=== PATIENT | female | born 1995 | race Caucasian/White ===

== ENCOUNTER 2022-02-11 12:09 | Observation (INO) ==
[2022-02-11] MEDS ORDERED: SODIUM CHLORIDE 0.9% 1000ML 1,000 ML IV ONE (12:23)
--- NOTE | 2022-02-11 12:29 | Emergency Department Note ---
Impression & Plan Palpitations, Elevated troponin ED Provider Note NAME: TIMO HERNANDEZ AGE: 26 SEX: F : 1995 ARRIVES VIA: Walk-In INFORMANT: Patient ED PROVIDER(S): Fabricio Valiente DO CHIEF COMPLAINT: Palpitations HPI: Patient is a 26-year-old female who presents to the ER for increased heart rate and palpitations which started on 1020. Symptoms started symptoms resolved around 11. She feels like her heart is racing and PT regularly with it. Denies any belly pain, nausea, vomiting, or diarrhea. No dysuria, urgency, or frequency. No other exacerbating or remitting factors. Patient denies swelling of calves, recent trips, history of immobilization or recent surgery, prior history of DVT, hemoptysis, and history of malignancy. Patient denies diabetes, hypertension, hyperlipidemia, CAD, history of sudden at a young age. Patient does not smoke. She is on control. ROS: See above HPI for pertinent positives & negatives. A total of 10 systems reviewed and were otherwise negative. PAST MEDICAL HISTORY:See Below PAST SURGICAL HISTORY:See Below FAMILY HISTORY:See Below SOCIAL HISTORY:See Below HOME MEDICATIONS:See Below ALLERGIES:See Below VITALS:See Below PHYSICAL EXAMINATION: GENERAL: Sitting up in bed, alert, well appearing, well nourished, no distress, non-toxic EYE EXAM: normal conjunctiva. OROPHARYNX: no exudate, no erythema, lips, buccal mucosa, and tongue normal and mucous membranes are moist NECK: supple, no nuchal rigidity, no adenopathy, non-tender LUNGS: Clear to auscultation. Normal chest wall mechanics HEART: no murmurs, S1 normal and S2 normal ABDOMEN: abdomen soft, non-tender, normo-active bowel sounds, no masses, no rebound or guarding. UPPER EXTREMITIES: upper extremities are grossly normal. LOWER EXTREMITIES: No pitting edema. Calves are equal bilateral NEURO EXAM: Normal sensorium, cranial nerves II-XII grossly intact, normal speech, no gross weakness of arms, no gross weakness of legs. MEDICAL DECISION MAKING: Patient is a 26-year-old female who presents the ER for palpitations. IV was established blood was obtained. Labs show no significant leukocytosis or anemia. D-dimer was negative. BMP along LFTs bilirubin was unremarkable. Lipase and TSH were unremarkable. Covid was negative. EKG was nondiagnostic. Initial troponin was 9. Repeat was 32. This was greater than 10 point elevation and was greater than 20% both of which per her new scoring criteria recommend admission. Patient has no cardiac risk factors and no real PE risk factors. Patient was updated at bedside. Her chest x-ray was unremarkable. She was discussed with hospitalist admitted for further work-up. It was admitted completely asymptomatic. I do favor that this is likely rate related and question if she was going into SVT. Triage Nursing notes reviewed. Limited review of prior medical records performed Vital Signs: reviewed and remarkable for tachycardia Differential diagnosis: Differential diagnoses includes but is not limited to acute coronary syndrome, myocardial infarction, pericarditis, pulmonary embolus, aortic dissection, pneumonia, pneumothorax, musculoskeletal, shingles, esophageal. ER treatment provided: See below Diagnostics interpreted by me: ECG: Sinus rhythm rate 98 Normal axis No PVCs T wave inversion in the septal leads QTC 393 Cardiac Monitoring: An order was placed for continuous cardiac monitoring. The monitor shows a rate of 101 with sinus rhythm. Laboratory studies: As stated above and show below. Imaging studies: Verbal AP upright 1 view of the chest is unremarkable Consultation(s): Discussed with Alvaro Rubin for further evaluation Procedures: none Critical Care: None Past Med/Surg History Social History Smoking Status: Never smoker Preferred Language: Nepali Feels Safe at Home: Yes Allergies Allergies Allergy/AdvReac Type Severity Reaction Status Date / Time No Known Allergies Allergy Unverified 02/11/22 16:13 Home Meds Home Medications Medication Instructions Recorded Confirmed acetaminophen 500 mg tablet 1,000 mg PO Q6H PRN 02/11/22 02/11/22 (Tylenol Extra Strength) cholecalciferol (vitamin D3) 125 125 mcg PO DAILY 02/11/22 02/11/22 mcg (5,000 unit) tablet (Vitamin D3) fremanezumab-vfrm 225 mg/1.5 mL 0 mg SUBCUT MO 02/11/22 02/11/22 subcutaneous syringe (Ajovy Syringe) ibuprofen 200 mg tablet 600 mg PO TID PRN 02/11/22 02/11/22 norethindrone 1 mg-ethinyl 1 tab PO DAILY 02/11/22 02/11/22 estradiol 20 mcg (24)-iron 75 mg (4) tablet ([place] 24 Fe) rizatriptan 10 mg tablet 10 mg PO DIRECTED PRN 02/11/22 02/11/22 spironolactone 50 mg tablet 50 mg PO BID 02/11/22 02/11/22 sumatriptan succinate 100 mg tablet 100 mg PO DAILY PRN 02/11/22 02/11/22 Results & Data (ED) Vital Signs Vital Signs - 24 hr 02/11/22 12:11 02/11/22 12:23 02/11/22 12:39 Temperature 36.3 C L Temperature Source Temporal Artery Scan Pulse Rate 107 H 107 H Pulse Rate [Finger] 98 H Pulse Rhythm Regular Regular Pulse Rhythm [Finger] Regular Pulse Strength Normal Pulse Strength [Finger] Normal Respiratory Rate 20 20 18 Respiratory Effort / Characteristics Non-Labored Spontaneous Non-Labored Respiratory Depth Normal Normal Respiratory Pattern Regular Regular Blood Pressure 115/82 Blood Pressure [Left Arm] 114/90 Blood Pressure Mean 93 Blood Pressure Mean [Left Arm] 98 Blood Pressure Position Sitting Blood Pressure Position [Left Arm] Sitting Pulse Oximetry 100 100 100 Oxygen Delivery Method Room Air Room Air Room Air Sepsis Recent Fever Within 48 Hours No Sepsis New/Unexplained Change in Mental Status No Sepsis Action Taken by Nursing No Action Required 02/11/22 13:46 02/11/22 14:57 02/11/22 16:03 Temperature Temperature Source Pulse Rate Pulse Rate [Finger] 85 93 H Pulse Rhythm Pulse Rhythm [Finger] Regular Regular Regular Pulse Strength Pulse Strength [Finger] Normal Normal Respiratory Rate 19 18 16 Respiratory Effort / Characteristics Non-Labored Non-Labored Non-Labored Respiratory Depth Normal Normal Normal Respiratory Pattern Regular Regular Blood Pressure Blood Pressure [Left Arm] 102/70 104/65 Blood Pressure Mean Blood Pressure Mean [Left Arm] 80 78 Blood Pressure Position Blood Pressure Position [Left Arm] Sitting Sitting Pulse Oximetry 100 100 Oxygen Delivery Method Room Air Room Air Room Air Sepsis Recent Fever Within 48 Hours Sepsis New/Unexplained Change in Mental Status Sepsis Action Taken by Nursing 02/11/22 17:04 Temperature Temperature Source Pulse Rate Pulse Rate [Finger] 98 H Pulse Rhythm Pulse Rhythm [Finger] Regular Pulse Strength Pulse Strength [Finger] Normal Respiratory Rate 20 Respiratory Effort / Characteristics Non-Labored Spontaneous Respiratory Depth Normal Respiratory Pattern Regular Blood Pressure Blood Pressure [Left Arm] 116/81 Blood Pressure Mean Blood Pressure Mean [Left Arm] 92 Blood Pressure Position Blood Pressure Position [Left Arm] Sitting Pulse Oximetry 99 Oxygen Delivery Method Room Air Sepsis Recent Fever Within 48 Hours Sepsis New/Unexplained Change in Mental Status Sepsis Action Taken by Nursing Laboratory Data Result diagrams: 02/11/22 12:24 02/11/22 12:24 Lab Results 02/11/22 02/11/22 02/11/22 Range/Units 12:24 12:24 12:24 WBC 6.82 (4.8-10.8) K/uL RBC 4.51 (4.2-5.4) M/uL Hgb 13.9 (12.0-16.0) g/dL Hct 40.6 (37-47) % MCV 90.0 (80-100) fL MCH 30.8 (25-34) pg MCHC 34.2 (32-36) g/dL RDW Std Deviation 38.4 (36.4-46.3) fL RDW Coeff of Moe 11.8 (11.5-14.5) % Plt Count 400 (130-400) K/uL MPV 8.7 (7.4-10.4) fL Immature Gran % (Auto) 0.1 % Neut % (Auto) 66.7 % Lymph % (Auto) 26.5 % Mason % (Auto) 6.3 % Eos % (Auto) 0.1 % Baso % (Auto) 0.3 % Neut # (Auto) 4.54 (1.4-6.5) K/uL Lymph # (Auto) 1.81 (1.2-3.4) K/uL Mason # (Auto) 0.43 (0.11-0.59) K/uL Eos # (Auto) 0.01 (0-0.5) K/uL Baso # (Auto) 0.02 (0-0.2) K/uL Immature Gran # (Auto) 0.01 (0.00-0.02) K/uL D-Dimer 200 (0-500) ug/L FEU Sodium (136-145) mmol/L Potassium (3.5-5.1) mmol/L Chloride (98-107) mmol/L Carbon Dioxide (21-32) mmol/L Anion Gap (3-11) BUN (6-23) mg/dl Creatinine (0.6-1.2) mg/dl Est Cr Clr Drug Dosing ml/min Est GFR ( Amer) ml/min Est GFR (Non-Af Amer) ml/min BUN/Creatinine Ratio (10-20) Glucose (70-99(Fasting)) mg/dl Calcium (8.5-10.1) mg/dl Total Bilirubin (0.2-1.0) mg/dl AST (13-39) U/L ALT (7-52) U/L Alkaline Phosphatase (34-104) U/L Troponin I High Sens 9.2 (0-14) pg/ml Total Protein (6.0-8.3) gm/dl Albumin (3.4-5.0) gm/dl Globulin (2.5-4.0) gm/dl Albumin/Globulin Ratio (0.9-2) Lipase (11-82) U/L TSH (0.300-4.500) uIu/ml SARS-CoV-2, RNA, NAAT (NEGATIVE) 02/11/22 02/11/22 02/11/22 Range/Units 12:24 12:30 14:38 WBC (4.8-10.8) K/uL RBC (4.2-5.4) M/uL Hgb (12.0-16.0) g/dL Hct (37-47) % MCV (80-100) fL MCH (25-34) pg MCHC (32-36) g/dL RDW Std Deviation (36.4-46.3) fL RDW Coeff of Moe (11.5-14.5) % Plt Count (130-400) K/uL MPV (7.4-10.4) fL Immature Gran % (Auto) % Neut % (Auto) % Lymph % (Auto) % Mason % (Auto) % Eos % (Auto) % Baso % (Auto) % Neut # (Auto) (1.4-6.5) K/uL Lymph # (Auto) (1.2-3.4) K/uL Mason # (Auto) (0.11-0.59) K/uL Eos # (Auto) (0-0.5) K/uL Baso # (Auto) (0-0.2) K/uL Immature Gran # (Auto) (0.00-0.02) K/uL D-Dimer (0-500) ug/L FEU Sodium 138 (136-145) mmol/L Potassium 3.9 (3.5-5.1) mmol/L Chloride 103 (98-107) mmol/L Carbon Dioxide 24 (21-32) mmol/L Anion Gap 11 (3-11) BUN 10 (6-23) mg/dl Creatinine 0.95 (0.6-1.2) mg/dl Est Cr Clr Drug Dosing 65.0 ml/min Est GFR ( Amer) 96.5 ml/min Est GFR (Non-Af Amer) 83.2 ml/min BUN/Creatinine Ratio 10.5 (10-20) Glucose 92 (70-99(Fasting)) mg/dl Calcium 10.0 (8.5-10.1) mg/dl Total Bilirubin 0.5 (0.2-1.0) mg/dl AST 13 (13-39) U/L ALT 8 (7-52) U/L Alkaline Phosphatase 34 (34-104) U/L Troponin I High Sens 31.9 H D (0-14) pg/ml Total Protein 8.2 (6.0-8.3) gm/dl Albumin 5.1 H (3.4-5.0) gm/dl Globulin 3.1 (2.5-4.0) gm/dl Albumin/Globulin Ratio 1.6 (0.9-2) Lipase 22 (11-82) U/L TSH 1.990 (0.300-4.500) uIu/ml SARS-CoV-2, RNA, NAAT (NEGATIVE) 02/11/22 Range/Units 15:58 WBC (4.8-10.8) K/uL RBC (4.2-5.4) M/uL Hgb (12.0-16.0) g/dL Hct (37-47) % MCV (80-100) fL MCH (25-34) pg MCHC (32-36) g/dL RDW Std Deviation (36.4-46.3) fL RDW Coeff of Moe (11.5-14.5) % Plt Count (130-400) K/uL MPV (7.4-10.4) fL Immature Gran % (Auto) % Neut % (Auto) % Lymph % (Auto) % Mason % (Auto) % Eos % (Auto) % Baso % (Auto) % Neut # (Auto) (1.4-6.5) K/uL Lymph # (Auto) (1.2-3.4) K/uL Mason # (Auto) (0.11-0.59) K/uL Eos # (Auto) (0-0.5) K/uL Baso # (Auto) (0-0.2) K/uL Immature Gran # (Auto) (0.00-0.02) K/uL D-Dimer (0-500) ug/L FEU Sodium (136-145) mmol/L Potassium (3.5-5.1) mmol/L Chloride (98-107) mmol/L Carbon Dioxide (21-32) mmol/L Anion Gap (3-11) BUN (6-23) mg/dl Creatinine (0.6-1.2) mg/dl Est Cr Clr Drug Dosing ml/min Est GFR ( Amer) ml/min Est GFR (Non-Af Amer) ml/min BUN/Creatinine Ratio (10-20) Glucose (70-99(Fasting)) mg/dl Calcium (8.5-10.1) mg/dl Total Bilirubin (0.2-1.0) mg/dl AST (13-39) U/L ALT (7-52) U/L Alkaline Phosphatase (34-104) U/L Troponin I High Sens (0-14) pg/ml Total Protein (6.0-8.3) gm/dl Albumin (3.4-5.0) gm/dl Globulin (2.5-4.0) gm/dl Albumin/Globulin Ratio (0.9-2) Lipase (11-82) U/L TSH (0.300-4.500) uIu/ml SARS-CoV-2, RNA, NAAT NEGATIVE (NEGATIVE) Administered Medications Discontinued Medications Sodium Chloride (Nss 1000ml) 1,000 mls @ 999 mls/hr IV .Q1H1M ONE Stop: 02/11/22 13:23 Last Infusion: 02/11/22 13:45 Dose: 0 mls/hr Documented by: [id number] Admin: 02/11/22 12:28 Dose: 999 mls/hr Documented by: [id number] Imaging Data Radiologist's Impression: Chest X-Ray 02/11/22 12:23 SINGLE VIEW CHEST CLINICAL HISTORY: Atypical chest pain. Dyspnea FINDINGS: An AP, portable, upright chest radiograph is obtained. No prior studies are available for comparison at the time of dictation. The cardiomediastinal silhouette is unremarkable. The lungs and pleural spaces are clear. No pneumothorax is seen. The bony thorax is grossly intact. IMPRESSION: No active disease in the chest. ACT 112: Negative or not required by law. Electronically signed by: Jayesh Frias M.D. 02/11/2022 12:56 PM Discharge Plan Visit Data Chief Complaint: Arrhythmia/Palpitations Stated Complaint: palpitations and arm numbness ED Provider: Fabricio Valiente Discharge Problem: Palpitations, Elevated troponin Forms Stand Alone Forms: [facility] [employer] Prescriptions Prescriptions: No Action sumatriptan succinate 100 mg tablet 100 mg PO DAILY PRN (Reason: Migraine Headache) RF: 0 rizatriptan 10 mg tablet 10 mg PO DIRECTED PRN (Reason: Migraine Headache) RF: 0 acetaminophen [Tylenol Extra Strength] 500 mg Tablet 1,000 mg PO Q6H PRN (Reason: HEADACHE/PAIN) RF: 0 ibuprofen 200 mg Tablet 600 mg PO TID PRN (Reason: Pain) RF: 0 spironolactone 50 mg tablet 50 mg PO BID RF: 0 norethindrone-e.estradiol-iron [[place] 24 Fe] 1 mg-20 mcg (24)/75 mg (4) tablet 1 tab PO DAILY RF: 0 cholecalciferol (vitamin D3) [Vitamin D3] 125 mcg (5,000 unit) Tablet 125 mcg PO DAILY RF: 0 Ajovy Syringe 225 mg/1.5 mL Syringe 0 mg SUBCUT MO RF: 0 Referrals Referrals: Farzaneh Cook MD [Primary Care Provider] -
[2022-02-11 12:38] LABS: Basophils # (auto) 0.02 K/uL (0-0.2); Basophils % (auto) 0.3 %; Eosinophils # (auto) 0.01 K/uL (0-0.5); Eosinophils % (auto) 0.1 %; Hematocrit (blood only) 40.6 % (37-47); Hemoglobin 13.9 g/dL (12.0-16.0); Immature Granulocytes # (auto) 0.01 K/uL (0.00-0.02); Immature Granulocytes % (auto) 0.1 %; Lymphocytes # (auto) 1.81 K/uL (1.2-3.4); Lymphocytes % (auto) 26.5 %; Mean Corpuscular Hemoglobin 30.8 pg (25-34); Mean Corpuscular Hgb Conc 34.2 g/dL (32-36); Mean Platelet Volume 8.7 fL (7.4-10.4); Monocytes # (auto) 0.43 K/uL (0.11-0.59); Monocytes % (auto) 6.3 %; Neutrophils # (auto) 4.54 K/uL (1.4-6.5); Neutrophils % (auto) 66.7 %; Platelet Count 400 K/uL (130-400); RDW Coefficient of Variation 11.8 % (11.5-14.5); RDW Standard Deviation 38.4 fL (36.4-46.3); Red Blood Count 4.51 M/uL (4.2-5.4); White Blood Count 6.82 K/uL (4.8-10.8)
[2022-02-11 12:51] LABS: D Dimer 200 ug/L FEU (0-500)
--- NOTE | 2022-02-11 12:58 | XRay Report ---
SINGLE VIEW CHEST CLINICAL HISTORY: Atypical chest pain. Dyspnea FINDINGS: An AP, portable, upright chest radiograph is obtained. No prior studies are available for c omparison at the time of dictation. The cardiomediastinal silhouette is unremarkable. The lungs and pleural spaces are clear. No pneumothorax is seen. The bony thorax is grossly intact. IMPRESSION: No active disease in the chest. ACT 112: Negative or not required by law. Electronically signed by: Jayesh Frias M.D. 02/11/2022 12:56 PM
[2022-02-11 13:26] LABS: Albumin Globulin Ratio 1.6 (0.9-2); Albumin Level 5.1 gm/dl (3.4-5.0); BUN Creatinine Ratio 10.5 (10-20); Bilirubin,Total 0.5 mg/dl (0.2-1.0); Est GFR (African American) 96.5 ml/min; Est GFR (Non-African American) 83.2 ml/min; Globulin 3.1 gm/dl (2.5-4.0); Potassium 3.9 mmol/L (3.5-5.1); Total Protein 8.2 gm/dl (6.0-8.3)
--- NOTE | 2022-02-11 17:44 | History & Physical Report ---
Date of Service February 11, 2022 Assessment & Plan (1) Palpitations: Plan: -For an hour and a half today associated with 1-2 incidences of chest discomfort, which had resolved by time of presentation. TSH wnl, not anemic on labs, not associated with activity or stress. Ddx includes arrhythmias vs valvular disease. -We will admit to med telemetry for further evaluation given her elevated troponin. -Repeat troponin q6h x3 -Echo in AM. (2) Elevated troponin: Plan: -Initial troponin 9.2, repeat 31.9. Will trend q6h x3. -Echo in a.m., EKG with any new complaints of chest pain or palpitations. (3) Migraine: Plan: -Takes sumatriptan 100 mg daily as needed, last took this yesterday. Has had migraines the past few days, relying on sumatriptan daily. Without migraine at present. -Ajovy once per month, scheduled for tomorrow. (4) Acne: Plan: -Continue spironolactone 50 mg twice daily. Plan: -Admit to med telemetry. -SCDs for DVT prophylaxis. -Full code. History of Present Illness Chief Complaint: palpitations Primary Care Provider: Farzaneh Cook MD Ms. Lemos is a 26-year-old female with PMH migraines, on OCP who presents today from her work office with palpitations. Patient is a PhD student studying mask medications and was at her desk reading articles and working on her dissertation when she noticed her heart began to beat rapidly. She tried to ignore and go on with her activities, but after about 10 or 15 minutes it persisted, so she decided to call [facility] who referred her to an urgent care or emergency room for further evaluation. By the time she arrived here, she states her heart rate slowed down, but stayed for further evaluation. She noticed on a few occasions while her heart was racing and she was walking to her car, she had to bend over and rest because of a general sense of discomfort in her chest, otherwise she has been asymptomatic with this. She denies weakness, dizziness, lightheadedness, shortness of breath. She woke up nauseous this morning which she attributes to her migraine headache she had last night. She has not been recently ill, no recent fever/chills, no recent travel, she is on oral contraception but her D-dimer was drawn limits. No previous medical history of heart disease, she states she does have a family history of heart disease on her father side, multiple great aunts and uncles and her grandfather have had open heart surgery. She exercises somewhat regularly, engages in walking and Pilates. Denies any recent stress, had all her high stress exams a month ago. No personal conflict adding stress to her life. She denies drug use, does drink alcohol on occasion, but denies any binge drinking. She has taken sumatriptan for the last 3 days for migraines, did recently start Ajovy last month, and tomorrow she is scheduled for her second injection. No other new medications. She states this happened one time before in July, at that time she went to an urgent care for evaluation. They monitored her heart rate for several hours, it was elevated throughout her visit then, however EKG was unrevealing and she was sent home without any treatment or recommended follow-up. In ED, her vital signs within normal limits, pulse on the higher end of normal at 98. Labs largely unremarkable with exception of initial troponin 9.2, repeat 2 hours later 31.9. TSH within normal limits. Covid negative. D-dimer within normal limits at 200. CXR revealed no active disease in chest. Patient received a 1 L normal saline fluid bolus and hospitalist service was consulted for further evaluation and admission. Allergies Allergy/AdvReac Type Severity Reaction Status Date / Time No Known Allergies Allergy Unverified 02/11/22 16:13 Home Medications Medication Instructions Recorded Confirmed Type acetaminophen 500 mg tablet 1,000 mg PO Q6H PRN 02/11/22 02/11/22 History (Tylenol Extra Strength) cholecalciferol (vitamin D3) 125 125 mcg PO DAILY 02/11/22 02/11/22 History mcg (5,000 unit) tablet (Vitamin D3) fremanezumab-vfrm 225 mg/1.5 mL 0 mg SUBCUT MO 02/11/22 02/11/22 History subcutaneous syringe (Ajovy Syringe) ibuprofen 200 mg tablet 600 mg PO TID PRN 02/11/22 02/11/22 History norethindrone 1 mg-ethinyl 1 tab PO DAILY 02/11/22 02/11/22 History estradiol 20 mcg (24)-iron 75 mg (4) tablet ([place] 24 Fe) rizatriptan 10 mg tablet 10 mg PO DIRECTED PRN 02/11/22 02/11/22 History spironolactone 50 mg tablet 50 mg PO BID 02/11/22 02/11/22 History sumatriptan succinate 100 mg tablet 100 mg PO DAILY PRN 02/11/22 02/11/22 History Past Med/Surg History Social History Smoking Status: Never smoker Hx Alcohol Use: Yes Alcohol type: beer Hx Substance Use: No Preferred Language: Amharic Beliefs That Will Affect Care: None Current Living Situation: Alone Feels Safe at Home: Yes Safety Concerns: Feels Safe At This Time Assistive Devices: None Review of Systems Review of Systems: Constitutional: No fever/chills, weakness, fatigue, myalgias, anorexia, night sweats Eyes: No diplopia, no worsening or blurred vision ENT: normal hearing, no trouble swallowing Respiratory: No cough, sputum, dyspnea at rest or on exertion Cardiovascular: palpitations for 1.5 hours this AM with episodes fo chest pressure/discomfort Abdomen: No pain, nausea, vomiting, diarrhea or constipation : Denies dysuria, hematuria, increased urgency/frequency, urinary retention Musculoskeletal: No joint pain, calf pain, swelling Neurologic: No weakness, numbness/tingling, or balance problems Psychiatric: No anxiety or depression Skin: No rash or itch Physical Exam Physical Exam: General: awake, alert, well-developed, no apparent distress Head: Normocephalic, atraumatic ENT: PERRL, EOMI, no pharyngeal exudate, mucous membranes moist Chest: Clear to auscultation, on room air, no adventitious breath sounds Cardiac: Regular rate and rhythm, no murmur, no JVD, normal peripheral pulses, good capillary refill Abdominal: NABS x 4 quadrants, soft, nontender to palpation, no rebound, guarding or tenderness Extremities: Normal inspection, no peripheral edema or erythema, calfs nontender to palpation Psych: Normal mood and affect Neuro: AAO x 3, strength intact bilaterally and rated 5/5, no motor deficits, speech is clear, no peripheral sensory deficits Skin: no rash or erythema Results & Data Results & Data ([facility]) Vital Signs (Past 12 Hours) Vital Signs Temp Pulse Pulse Resp BP BP Pulse Ox 02/11/22 17:04 98 H 20 116/81 99 04/13/22 16:03 93 H 16 104/65 02/11/22 14:57 18 100 02/11/22 13:46 85 19 102/70 100 02/11/22 12:39 98 H 18 114/90 100 02/11/22 12:23 107 H 20 100 02/11/22 12:11 36.3 C L 107 H 20 115/82 100 Laboratory Results Abnormal lab results 02/11/22 02/11/22 Range/Units 12:24 14:38 Troponin I High Sens 31.9 H D (0-14) pg/ml Albumin 5.1 H (3.4-5.0) gm/dl Diagnostic Findings Chest X-Ray 02/11/22 12:23 SINGLE VIEW CHEST CLINICAL HISTORY: Atypical chest pain. Dyspnea FINDINGS: An AP, portable, upright chest radiograph is obtained. No prior studies are available for comparison at the time of dictation. The cardiomediastinal silhouette is unremarkable. The lungs and pleural spaces are clear. No pneumothorax is seen. The bony thorax is grossly intact. IMPRESSION: No active disease in the chest. ACT 112: Negative or not required by law. Electronically signed by: Jayesh Frias M.D. 02/11/2022 12:56 PM ECG Additional Comments: Normal sinus rhythm with sinus arrhythmia Possible Left atrial enlargement Borderline ECG No previous ECGs available. Upon my review, no ST segment or T wave inversions. Code Status & VTE Plan Code Status Full Code. VTE Prophylaxis Plan VTE Prophylaxis will be ordered: Yes Supervising Physician Co-Signing Physician Notes Patient seen and examined, chart reviewed, case discussed with Irasema Tolliver and I agree with the assessment and plan as above except as otherwise noted above. 26yo F suspect SVT not present at time of admission with mildly increased troponin on admit. Normal rate and BP at time of bedside assessment, RRR, lungs CTAB. D dimer negative, no hypoxia. No chest pain. Has hx of recurrent palpitations. TSH wnl. Lipase wnl. CXR wnl. EKG without signs of acute ischemia. COVID negative. Followup overnight for High sens trop eval. If otherwise well and trop downtrends would recommend outpt 30 day monitor given hx and recurrent sx. PG Care Time/CCT Total # of Minutes Spent Total Time Spent with Patient: Total time spent is greater than 50% in coordination of care (as documented) at patient's floor/unit and/or counseling patient: Coding Level of Care Code 98214 Initial Inpt Care Lvl 2 Diagnoses Palpitations R00.2 Elevated troponin R77.8 Migraine G43.909 Acne L70.9
[2022-02-11] MEDS ORDERED: ONDANSETRON INJ 2 MG/ML 2 ML VIAL IV PRN (18:40)
[2022-02-11] MEDS ORDERED: SUMAtriptan succinate 100 MG TAB PO PRN (18:40)
[2022-02-11] MEDS ORDERED: IBUPROFEN 600 MG TAB PO PRN (18:40)
[2022-02-11] MEDS ORDERED: POLYETHYLENE (MIRALAX) 17 GM PACK PO PRN (18:40)
[2022-02-11] MEDS ORDERED: RIZATRIPTAN BENZOATE 10 MG TAB PO PRN (18:40)
[2022-02-11] MEDS: ACETAMINOPHEN 500 MG TAB PO PRN (20:24)
[2022-02-11] MEDS: SPIRONOLACTONE 25 MG TAB PO SCH (20:30)
--- NOTE | 2022-02-12 06:32 | Electrocardiogram Report ---
Test Reason : Blood Pressure : / mmHG Vent. Rate : 098 BPM Atrial Rate : 098 BPM P-R Int : 150 ms QRS Dur : 064 ms QT Int : 308 ms P-R-T Axes : 075 057 046 degrees QTc Int : 393 ms Normal sinus rhythm with sinus arrhythmia Possible Left atrial enlargement Borderline ECG No previous ECGs available Confirmed by Bipin Perry ([id number]) on 02/12/2022 6:31:47 AM Referred By: REFERRED SELF Confirmed By:Bipin Perry
[2022-02-12] MEDS ORDERED: CHOLECALCIFEROL 5,000 UNITS 125 MCG TAB PO SCH (09:00)
[2022-02-12] MEDS: SPIRONOLACTONE 25 MG TAB PO SCH (09:34)
[2022-02-12] MEDS: ACETAMINOPHEN 500 MG TAB PO PRN (12:01)
--- NOTE | 2022-02-12 13:17 | Discharge Summary ---
Date of Service February 12, 2022 Admission HPI Per Admitting Provider Ms. Lemos is a 26-year-old female with PMH migraines, on OCP who presents today from her work office with palpitations. Patient is a PhD student studying mask medications and was at her desk reading articles and working on her dissertation when she noticed her heart began to beat rapidly. She tried to ignore and go on with her activities, but after about 10 or 15 minutes it persisted, so she decided to call [facility] who referred her to an urgent care or emergency room for further evaluation. By the time she arrived here, she states her heart rate slowed down, but stayed for further evaluation. She noticed on a few occasions while her heart was racing and she was walking to her car, she had to bend over and rest because of a general sense of discomfort in her chest, otherwise she has been asymptomatic with this. She denies weakness, dizziness, lightheadedness, shortness of breath. She woke up nauseous this morning which she attributes to her migraine headache she had last night. She has not been recently ill, no recent fever/chills, no recent travel, she is on oral contraception but her D-dimer was drawn limits. No previous medical history of heart disease, she states she does have a family history of heart disease on her father side, multiple great aunts and uncles and her grandfather have had open heart surgery. She exercises somewhat regularly, engages in walking and P ilates. Denies any recent stress, had all her high stress exams a month ago. No personal conflict adding stress to her life. She denies drug use, does drink alcohol on occasion, but denies any binge drinking. She has taken sumatriptan for the last 3 days for migraines, did recently start Ajovy last month, and tomorrow she is scheduled for her second injection. No other new medications. She states this happened one time before in July, at that time she went to an urgent care for evaluation. They monitored her heart rate for several hours, it was elevated throughout her visit then, however EKG was unrevealing and she was sent home without any treatment or recommended follow-up. In ED, her vital signs within normal limits, pulse on the higher end of normal at 98. Labs largely unremarkable with exception of initial troponin 9.2, repeat 2 hours later 31.9. TSH within normal limits. Covid negative. D-dimer within normal limits at 200. CXR revealed no active disease in chest. Patient received a 1 L normal saline fluid bolus and hospitalist service was consulted for further evaluation and admission. 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 NAD. Cooperative. HEENT: Atraumatic, normocephalic. Pulm: CTAB A&P. -wheezes, -rales, -rhonchi. Symmetrical chest rise. No increase in work of breathing. No respiratory distress. Cardiac: RRR, -mrg. Radial pulses intact and symmetrical. Abdominal: Nontender, nondistended, soft. BS present. Discharge Data Allergies Allergy/AdvReac Type Severity Reaction Status Date / Time No Known Allergies Allergy Unverified 02/11/22 16:13 Consultations 02/11/22 16:36 ED Decision to Admit Stat 02/12/22 12:17 Consult [facility] mileage clerk Routine Hospital Course (1) Palpitations: Chyna is a 26-year-old female with history of migraines who experienced an hour and a half of chest discomfort and severe palpitations prior to presentation to the ER. At time of presentation to the emergency department her symptoms and palpitations had resolved. She had a mild troponin leak on high- sensitivity troponin which down trended. Her EKG did not show signs of ACS, and she remained in sinus rhythm with occasional slight sinus tachycardia on telemetry overnight. Based on her descriptions and abrupt cessation of symptoms was suspected that she spans an episode of SVT/AVNRT. Patient reports she had experienced 1 prior episode of this last July which was worse and spon taneously disappeared. She is recommended to have a Holter monitor as an outpatient with close follow-up precautions. Pill in pocket approach was not pursued as diagnosis was not confirmed on telemetry on evaluation. She did not have any gross electrolyte abnormalities, TSH was normal. Her blood pressure was intermittently low and she reported a slightly low blood pressure at baseline despite normal heart rate, her spironolactone was dose decreased from 50 mg twice daily to 25 mg twice daily. To do as outpatient: 1. Follow-up with PCP. Recommend event monitor as outpatient. Being set up by nurse navigator at d/c. 2. Continued follow-up with neurology for migraines, patient did experience a migraine similar to prior during admission. She has recently not had benefit from Ajovy and is looking to switch from this. 3. Dose decrease spironolactone from 50 mg twice daily to 25 mg twice daily as above Palpitations -For an hour and a half day of admission associated with 1-2 incidences of chest discomfort, which had resolved by time of presentation. TSH wnl, not anemic on labs, not associated with activity or stress. Ddx includes arrhythmias vs valvular disease. -Admitted to telemetry for further evaluation given her elevated troponin. -Repeat troponin q6h x3 down trended, consistent with demand ischemia -TTE did not show any acute abnormalities. EF 60-65% with no wall motion abnormalities, no valvular abnormalities, no diastolic dysfunction. (2) Elevated troponin: -As above (3) Migraine: -Takes sumatriptan 100 mg daily as needed, last took this yesterday. Has had migraines the past few days, relying on sumatriptan daily. Without migraine at present. -Ajovy once per month, will follow up for alternatives and has discussed botox as she has not had much benefit from Ajovy (4) Acne: Radha lactone dose decreased as above -Admit to med telemetry. -SCDs for DVT prophylaxis. -Full code. Total Time Total Time Spent Total Time Spent (In Minutes): Time spend day of discharge 40 minutes including direct patient care, documentation, review of labs and images, and coordination of care. Discharge Plan Discharge Items Patient Disposition: Home - Self-Care Reason For Visit: PALPITATIONS Discharge Diagnosis: Suspected atrial tachycardia ?AVNRT Activity: Per Instructions section Non-emergency contact: Primary Care Provider Call non-emergency contact if: you have any medication questions Follow-up/Referrals: Victoria Redd MD [Resident] - Farzaneh Cook MD [Primary Care Provider] - Diet: Regular Addtl Attending Provider Instructions: You are seen in the hospital for palpitations which had resolved by time of evaluation in the emergency department. Your heart rate was normal in the emergency department, however a very low-grade rise in a heart marker called troponin was appreciated. You were followed for a cardiac evaluation, this level decreased. You did not show any other signs of heart attack, although you did note that you have a family history of early VT. Your EKG did not show signs of heart attack/heart ischemia. It was suspected that your heart rate was in a fast rhythm, called SVT/AVNRT which had resolved by time of admission which caused your symptoms and the slight increase in troponin. This rhythm was not observed following overnight telemetry, you noted that your palpitations had occurred once before in July and then once again with the current episode. Is been recommended that he follow-up with a event monitor as an outpatient, this is being set up for you at discharge. You should have follow-up with a dedicated PCP both for your migraines and for your event monitor/palpitations follow-up, an appointment at the [facility] is being scheduled for you with Dr. Redd as above. Your thyroid levels were normal during admission. Your COVID test was negative. Your D-Dimer (a marker for blood clots/pulmonary emboli) was normal. Your blood pressure is borderline low at baseline. Your spironolactone lowers blood pressure, the dose of this has been decreased as noted below. If you develop any new or worsening symptoms including fever, chills, sweats, chest pain, chest pressure, difficulty breathing, uncontrolled nausea/vomiting, rash, wheezing, passing out or nearly passing out, bleeding, black/bloody bowel movements, or other new or concerning symptoms please call your primary care physician, or call 911 for re-evaluation in the emergency department if you are very concerned. Pending Studies at Discharge: No Stand-Alone Forms: My [facility] [employer], Smoking Cessation Medications and DC Order Prescriptions: Continued sumatriptan succinate 100 mg tablet 100 mg PO DAILY PRN (Reason: Migraine Headache) RF: 0 rizatriptan 10 mg tablet 10 mg PO DIRECTED PRN (Reason: Migraine Headache) RF: 0 acetaminophen [Tylenol Extra Strength] 500 mg Tablet 1,000 mg PO Q6H PRN (Reason: HEADACHE/PAIN) RF: 0 ibuprofen 200 mg Tablet 600 mg PO TID PRN (Reason: Pain) RF: 0 norethindrone-e.estradiol-iron [[place] 24 Fe] 1 mg-20 mcg (24)/75 mg (4) tablet 1 tab PO DAILY RF: 0 cholecalciferol (vitamin D3) [Vitamin D3] 125 mcg (5,000 unit) Tablet 125 mcg PO DAILY RF: 0 Ajovy Syringe 225 mg/1.5 mL Syringe 0 mg SUBCUT MO RF: 0 Changed spironolactone 50 mg tablet 25 mg PO BID Qty: 0 RF: 0 Discharge Orders: Discharge Order (Routine); Ordered 02/12/22 Ordered By: Alvaro Maher Admission Data Admit Date/Time: 02/11/22 17:02 Attending Provider: Alvaro Maher Admit Provider: Alvaro Maher Primary Care Provider: Farzaneh Cook Other Providers: Alvaro Maher Other Interventions: Discharge Summary Assessment (RN) Last Done: 02/12/22 13:16 Coding Level of Care Code D/C DAY MANAGEMENT >30 MINS Diagnoses Palpitations R00.2 Elevated troponin R77.8 Migraine G43.909 Acne L70.9
--- NOTE | 2022-02-12 17:49 | XCELERA ---
[id number]
== END 2022-02-12 13:38 | disposition home or self-care (01) ==
LOC: ED 12:09 → INTOOBSV 17:02 → 2W 17:02